=== PATIENT | male | born 1970 | race Caucasian/White ===

== ENCOUNTER 2016-10-05 17:21 | Emergency (ER) | payer SELFPAY ==
[2016-10-05] MEDS ORDERED: DEXAMETHASONE 4 MG TABLET PO ONE (19:00)
[2016-10-05] MEDS ORDERED: DIPHENHYDRAMINE HCL 50 MG CAPSULE PO ONE (19:00)
[2016-10-05] MEDS ORDERED: IBUPROFEN 600 MG TABLET PO ONE (19:01)
--- NOTE | 2016-10-05 19:04 | ER Document Report ---
ED General - General Chief Complaint: Insect Bite Stated Complaint: POSSIBLE INSECT BITE Time Seen by Provider: 10/05/16 18:20 Notes: Patient is a 46-year-old male who arrives in police custody with concerns of an insect bite to the dorsum of his right foot. Patient states that he was in his front yard when he felt something sting him and since that time he has had a severe, constant, throbbing pain to the dorsum of the right foot. Nothing improves or worsens the pain. He denies any history of similar symptoms in the past. Denies any difficulty breathing, swallowing, vomiting, diarrhea or abdominal pain. TRAVEL OUTSIDE OF THE [place] IN LAST 30 DAYS: No - Related Data Allergies/Adverse Reactions: duloxetine HCl [From Cymbalta] Allergy (Verified 01/11/16 09:55) gabapentin [From Neurontin] Allergy (Verified 01/11/16 09:55) Past Medical History - General Information source: Patient - Social History Smoking Status: Current Every Day Smoker Frequency of alcohol use: Heavy Drug Abuse: Heroin, Marijuana, Methamphetamine Family History: Reviewed & Not Pertinent Past Surgical History: Reports: Hx Orthopedic Surgery - neck fusion x 2 - Immunizations Immunizations up to date: Yes Hx Diphtheria, Pertussis, Tetanus Vaccination: Yes Review of Systems - Review of Systems Notes: Constitutional: Negative for fever. HENT: Negative for sore throat. Eyes: Negative for visual changes. Cardiovascular: Negative for chest pain. Respiratory: Negative for shortness of breath. Gastrointestinal: Negative for abdominal pain, vomiting or diarrhea. Genitourinary: Negative for dysuria. Musculoskeletal: Negative for back pain. Skin: Positive for rash. Neurological: Negative for headaches, weakness or numbness. 10 point ROS negative except as marked above and in HPI. Physical Exam - Vital signs Vitals: Temp Pulse Resp BP Pulse Ox 98.0 F 94 20 126/70 H 96 10/05/16 17:27 10/05/16 17:27 10/05/16 17:27 10/05/16 17:27 10/05/16 17:27 Interpretation: Normal Notes: PHYSICAL EXAMINATION: GENERAL: Well-appearing, well-nourished and in no acute distress. HEAD: Atraumatic, normocephalic. EYES: sclera anicteric, conjunctiva are normal. ENT: Moist mucous membranes. NECK: Normal range of motion LUNGS: Normal work of breathing HEART: 2+ radial pulses bilaterally EXTREMITIES: no pitting or edema. No cyanosis. NEUROLOGICAL: No focal neurological deficits. Moves all extremities spontaneously and on command. PSYCH: Normal mood, normal affect. SKIN: Warm, Dry, normal turgor, mild area of erythema to the central dorsum of the right foot Course - Re-evaluation Re-evalutation: 10/05/16 19:01 Patient presents with swelling and pain to the mid dorsum of the right foot. Patient has an apparent sting puncture wound to the lateral most aspect of this area of erythema. He states this started acutely while he was walking his front yard barefoot. He denies any trauma to the area. No shortness of breath , urticaria, vomiting, diarrhea or abdominal pain. He has not had any syncope and his blood pressure is within normal limits. Suspect a local reaction secondary to an unidentified insect bite. He will be treated with antihistamines, single dose of Decadron and be instructed to continue using Benadryl and ibuprofen until he has had resolution of symptoms. At this time will discharge with return precautions and follow-up recommendations. Verbal discharge instructions given a the bedside and opportunity for questions given. Medication warnings reviewed. Patient is in agreement with this plan and has verbalized understanding of return precautions and the need for primary care follow-up in the next 24-72 hours. - Vital Signs Vital signs: Temp Pulse Resp BP Pulse Ox 98.0 F 86 20 99/74 L 98 10/05/16 17:27 10/05/16 19:50 10/05/16 19:50 10/05/16 19:50 10/05/16 19:50 Discharge - Discharge Clinical Impression: Right foot pain Insect bite Qualifiers: Encounter type: initial encounter Qualified Code(s): W57.XXXA - Bitten or stung by nonvenomous insect and other nonvenomous arthropods, initial encounter Condition: Good Disposition: HOME, SELF-CARE Additional Instructions: Continue taking ibuprofen 600 mg every 6 hours as needed for pain to her right foot. You may also take Benadryl 50 mg every 6 hours for itching. Apply ice to the area regularly. Return for any additional concerns you may have including difficulty breathing, vomiting, passing out, or any other symptoms that are worrisome to you.
[2016-10-05 19:52] VITALS: BP 99/74
== END 2016-10-05 19:50 | disposition home or self-care (01) ==
LOC: ER 17:21
DX: S90.861A Insect bite (nonvenomous), right foot, initial encounter (principal); M79.671 Pain in right foot; W57.XXXA Bitten or stung by nonvenomous insect and other nonvenomous arthropods, initial encounter; F17.200 Nicotine dependence, unspecified, uncomplicated
CPT/HCPCS: 99282